=== PATIENT | female | born 1990 | race Caucasian/White ===

== ENCOUNTER 2021-05-26 09:23 | Day surgery (SDC) | payer MEDICAID ==
[~2021-05-26] VITALS: Ht 157.5 cm; Wt 127.0 kg
[2021-05-26 09:33] VITALS: BP 134/83
[2021-05-26] MEDS ORDERED: VENL150C4 PO (09:41)
[2021-05-26] MEDS ORDERED: ESCI10TA PO (09:42)
[2021-05-26] MEDS ORDERED: LORA-269 PO (09:42)
[2021-05-26] MEDS ORDERED: fentaNYL/PF 50MCG/1 ML 2ML syringe ONE (09:46)
[2021-05-26] MEDS ORDERED: MIDAZolam 1 MG/ML 5ML VIAL ONE (09:47)
[2021-05-26] MEDS ORDERED: LIDOcaine Viscous 15ml cup ONE (09:47)
[2021-05-26 10:25] VITALS: BP 139/84
[2021-05-26 10:35] VITALS: BP 146/81
[2021-05-26 10:45] VITALS: BP 143/60
[2021-05-26 10:55] VITALS: BP 127/82
== END 2021-05-26 11:10 | disposition home or self-care (01) ==
LOC: GI LAB 09:23
PROVIDERS: ATTEND Internal Medicine Gastroenterology
DX: R11.2 Nausea with vomiting, unspecified (principal); R12 Heartburn; K29.50 Unspecified chronic gastritis without bleeding; K22.70 Barrett's esophagus without dysplasia; K21.00 Gastro-esophageal reflux disease with esophagitis, without bleeding
CPT/HCPCS: 43239; 99152; J2250; J3010; J7040; Z7512; 99153; A4620